=== PATIENT | female | born 2000 | race Caucasian/White ===

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

== ENCOUNTER 2018-08-12 16:29 | Emergency (ER) | payer OTHER ==
[2018-08-12 16:42] VITALS: BP 97/62; PULSE 92; TEMP 98.8; BMI 18.6
[2018-08-12 17:02] LABS: HCG,QUALITATIVE URINE Negative
[2018-08-12 17:11] LABS: URINE APPEARANCE SLCLOUDY; URINE BILIRUBIN NEGATIVE (<2.0 mg/dL); URINE COLOR YELLOW; URINE GLUCOSE (UA) NEGATIVE (NEGATIVE); URINE KETONE NEGATIVE (NEGATIVE); URINE LEUK ESTERASE 2+ (NEGATIVE); URINE NITRITE NEGATIVE (NEGATIVE); URINE PROTEIN NEGATIVE (NEGATIVE); URINE UROBILINOGEN NEGATIVE mg/dL (0.2-1.0)
[2018-08-12 17:14] LABS: EPI CELLS MODERATE /HPF (FEW); URINE MUCUS MANY
--- NOTE | 2018-08-12 17:20 | PDOC ---
History of Present Illness - General Chief Complaint: Urinary Problem Stated Complaint: UTI SYX Time Seen by Provider: 08/12/18 17:05 - History of Present Illness Initial Comments: 08/12/18 17:15 17-year-old female presents for evaluation of dysuria 4 days. She has no systemic symptoms or comorbidities. Past History - Past Medical History Allergies/Adverse Reactions: Allergies Allergy/AdvReac Type Severity Reaction Status Date / Time No Known Drug Allergies Allergy Unknown Verified 08/12/18 16:35 Home Medications: Ambulatory Orders Nitrofurantoin Monohyd/M-Cryst [Macrobid -] 100 mg PO BID #14 capsule 08/12/18 Asthma: No Cancer: No Cardiac Disorders: No Diabetes: No HTN: No Psychiatric Problems: Yes (DEPRESSION) Seizures: No Thyroid Disease: No - Immunization History Immunization Up to Date: Yes - Suicide/Smoking/Psychosocial Hx Smoking Status: No Smoking History: Never smoked Have you smoked in the past 12 months: No Number of Cigarettes Smoked Daily: 0 Hx Alcohol Use: No Drug/Substance Use Hx: No Substance Use Type: None Hx Substance Use Treatment: No Review of Systems - Review of Systems Constitutional: No: Fever : Yes: Dysuria *Physical Exam - Vital Signs Last Vital Signs Temp Pulse Resp BP Pulse Ox 98.8 F 92 H 18 97/62 99 08/12/18 16:41 08/12/18 16:41 08/12/18 16:41 08/12/18 16:41 08/12/18 16:41 - Physical Exam Comments: 08/12/18 17:15 HEAD: NC/AT EYES: Conjuntiva clear MS: Full ROM in all joints without edema NEUROLOGIC: No gross sensory or motor deficits, NVID SKIN: Normal color and temperature no lesions or rashes Moderate Sedation - Procedure Monitoring Vital Signs: Procedure Monitoring Vital Signs Temperature 98.8 F 08/12/18 16:41 Pulse Rate 92 H 08/12/18 16:41 Respiratory Rate 18 08/12/18 16:41 Blood Pressure 97/62 08/12/18 16:41 O2 Sat by Pulse Oximetry (%) 99 08/12/18 16:41 ED Treatment Course - ADDITIONAL ORDERS Additional order review: Laboratory Results 08/12/18 16:54 Urine Color Yellow Urine Appearance Slcloudy Urine pH 5.0 Ur Specific [place] 1.028 Urine Protein Negative Urine Glucose (UA) Negative Urine Ketones Negative Urine Blood 2+ H Urine Nitrite Negative Urine Bilirubin Negative Urine Urobilinogen Negative Ur Leukocyte Esterase 2+ H Urine WBC (Auto) 13 Urine RBC (Auto) 1 Ur Epithelial Cells Moderate Urine Mucus Many Urine HCG, Qual Negative *DC/Admit/Observation/Transfer Diagnosis at time of Disposition: UTI (urinary tract infection) - Discharge Dispostion Disposition: HOME Condition at time of disposition: Stable Decision to Admit order: No - Prescriptions Prescriptions: Nitrofurantoin Monohyd/M-Cryst [Macrobid -] 100 mg PO BID #14 capsule - Referrals - Patient Instructions Printed Discharge Instructions: Urinary Tract Infection Additional Instructions: Please take the antibiotics as directed. Return to the emergency room should symptoms worsen or go unresolved and follow-up with your primary care physician one to 2 days for further evaluation and treatment options. - Post Discharge Activity
== END 2018-08-12 17:27 | disposition home or self-care (01) ==
LOC: JERFT 16:29
DX: N39.0 Urinary tract infection, site not specified (principal)
CPT/HCPCS: 81003; 81015; 84703; 87077; 87086; 99281-25

== ENCOUNTER 2020-01-02 18:41 | Inpatient (IN) | payer OTHER ==
[2020-01-02] MEDS: ELECTROLYTE-148 SOLN 1,000 ML IV SCH (18:41)
[2020-01-02 18:54] VITALS: BMI 21.5
--- NOTE | 2020-01-02 18:56 | HP ---
Past Medical History - Primary Care Physician PCP:: Jeromy Irwin E - Admission Chief Complaint: In labor History of Present Illness: Hx of PTL. Second . PTL prevention. BMZ series. Refused Linda, 36w 1d. History Source: Medical Record, Caregiver Limitations to Obtaining History: No Limitations - Past Medical History WAIST CUTTER: No: Alzheimer's, CVA, Dementia, Migraine, Multiple Sclerosis, Peripheral Neuropathy, Parkinson's, Seizure, Syncope, TIA, Vertigo, Other Cardiovascular: No: AFIB, Aneurysm, Aortic Insufficiency, Aortic Stenosis, CAD, CHF, Deep Vein Thrombosis, HTN, Hyperlipdemia, [place], Mitral Insufficiency, Mitral Stenosis, Murmur, Pulmonary Hypertension, Other Pulmonary: No: Asthma, Bronchitis, Cancer, COPD, O2 Dependent, Pneumonia, Previously Intubated, Pulmonary Embolus, Pulmonary Fibrosis, Sleep Apnea, Other Gastrointestinal: No: Ascites, Cancer, Constipation, Crohn's Disease, Diverticulitis, Diverticulosis, Esophageal Varices, Gastritis, GERD, GI Bleed, Hemorrhoids, Hiatal Hernia, Inflamatory Bowel Disease, Irritable Bowel Disease, Pancreatitis, Peptic Ulcer Disease, Ulcerative Colitis, Other Hepatobiliary: No: Cirrhosis, Cholelithiasis, Cholecystitis, Choledocholithiasis, Hepatitis A, Hepatitis B, Hepatitis C, Other Renal/: No: Renal Failure, Renal Inusuff, BPH, Cancer, Hematuria, Hemodialysis, Neurogenic Bladder, Renal Calculi, UTI, Other Reproductive: No: Ectopic , Endometriosis, Fibroids, PID, Polycystic Ovary Syndrome, Postmenopausal, Other ... Weeks Gestation by Dates: 36.1 Heme/Onc: No: Anemia, B12 Deficiency, Bleeding Disorder, Cancer, Current Chemotherapy, Current Radiation Therapy, Hemochromatosis, Hypercoaguable State, Myeloproliferative Synd, Sickle Cell Disease, Sickle Cell Trait, Thrombocytopenia, Other Infectious Disease: No: AIDS, C-Diff, Herpes Zoster, HIV, MRSA, STD's, Tuberculosis, VREF, Other Psych: No: Addictions, Anxiety, Bipolar, Depression, Panic, Psychosis, Schizophrenia, Other Musculoskeletal: No: Bursitis, Chronic low back pain, Hemiparesis, Hemiplegia, Osteoarthritis, Paraplegia, Other Rheumatology: No: Fibromyalgia, Gout, Lupus, Rheumatoid Arthritis, Sarcoidosis, Vasculitis, Other ENT: No: Allergic Rhinitis, Sinusitis, Other Endocrine: No: Esteban's Disease, Frank's Disease, Diabetes Insipidus, Diabetes Mellitus, Hyperparathyroidism, Hyperthyroidism, Hypothyroidism, Osteopenia, SIADH, Other Dermatology: No: Basal Cell, Cellulitis, Eczema, Melanoma, Psoriasis, Squamous Cell, Other - Past Surgical History Past Surgical History: No: None, AAA Repair, AICD, Amputation, Appendectomy, Arthrosocopy, AV Fistula/Graft, Bariatric Surgery, Breast Biopsy, Bypass, CABG, Carotid Endarterectomy, Cataract Removal, Cholecystectomy, Colectomy, Colonoscopy, Colostomy, Craniotomy, , Cystectomy, Hernia Repair, Hysterectomy, Ileal Conduit, Ileosotomy, Joint Replacement, Kidney Transplant, Laminectomy, Liver Transplant, Mastectomy, Nephrectomy, Oopherectomy, Orchiectomy, Permanent Pacemaker, Prostatectomy, Splenectomy, Stent, Thoracotomy, TURP, Tonsillectomy, Tubal Ligation, Upper Endoscopy, Valve Replacement, Vasectomy, Vein Stripping/Ligation Hx Myomectomy: No Hx Transabdominal Cerclage: No - Smoking History Smoking history: Never smoked Have you smoked in the past 12 months: No Aproximately how many cigarettes per day: 0 - Alcohol/Substance Use Hx Alcohol Use: No Home Medications - Allergies Allergies/Adverse Reactions: Allergies Allergy/AdvReac Type Severity Reaction Status Date / Time No Known Drug Allergies Allergy Unknown Verified 01/02/20 18:44 - Home Medications Home Medications: Ambulatory Orders NK [No Known Home Medication] 01/02/20 Family Medical History Family History: Unremarkable Review of Systems - Review of Systems Constitutional: reports: No Symptoms Eyes: reports: No Symptoms HENT: reports: No Symptoms Neck: reports: No Symptoms Cardiovascular: reports: No Symptoms Respiratory: reports: No Symptoms Gastrointestinal: reports: No Symptoms Genitourinary: reports: No Symptoms Breasts: reports: No Symptoms Reported Musculoskeletal: reports: No Symptoms Integumentary: reports: No Symptoms Neurological: reports: No Symptoms Endocrine: reports: No Symptoms Hematology/Lymphatic: reports: No Symptoms Psychiatric: reports: No Symptoms Problem List - Problems (1) with 36 completed weeks gestation Code(s): Z3A.36 - 36 WEEKS GESTATION OF (2) Active labor Code(s): ZTI6526 - Assessment/Plan Admitted . SBE prophylaxis. Delivery.
[2020-01-02] MEDS ORDERED: AMPICILLIN - 2 GM in SODIUM CHLORIDE 100 ML IVPB ONE (18:57)
[2020-01-02] MEDS ORDERED: ELECTROLYTE-148 SOLN 1,000 ML IV SCH ×2 (19:00→21:00)
[2020-01-02] MEDS ORDERED: LIDOCAINE HCL 1% PRESERVATIVE FREE - 30ML VIAL ONE (19:30)
[2020-01-02] MEDS ORDERED: OXYTOCIN 20 UNITS in 0.9% NS 20 UNIT/1,000 ML INFUS.BAG IV ONE (19:30)
--- NOTE | 2020-01-02 20:24 | PN ---
Progress Note, Labor Vaginal Exam #1 Labor Exam Date: 01/02/20 Labor Exam Time: 19:05 Heart Rate (range): 135 Dilatation: 5 Effacement (%): 80 Amniotic Membrane Status: Intact Presentation: Vertex/Position Station: 0 (AROM - clear.)
--- NOTE | 2020-01-02 20:27 | PN ---
Progress Note, Labor Vaginal Exam #2 Labor Exam Date: 01/02/20 Labor Exam Time: 20:10 Dilatation: 8 Effacement (%): 90 Amniotic Membrane Status: Ruptured Presentation: Vertex/Position Station: +1 (Declines epidural. Very active labor.)
[2020-01-02] MEDS: OXYTOCIN 20 UNITS in 0.9% NS 20 UNIT/1,000 ML INFUS.BAG IV SCH (20:45)
--- NOTE | 2020-01-02 20:53 | PN ---
Progress Note, Labor Vaginal Exam #3 Labor Exam Date: 01/02/20 Labor Exam Time: 20:20 Station: +2 (Fully, pushing.)
[2020-01-02] MEDS ORDERED: METHYLERGONOVINE MALEATE 0.2 MG/1 ML AMP IM PRN (20:55)
[2020-01-02] MEDS ORDERED: IBUPROFEN 600 MG TABLET (FP) PO PRN (20:55)
[2020-01-02] MEDS ORDERED: BENZOCAINE 20% 57 GM BOTTLE TP PRN (20:55)
[2020-01-02] MEDS ORDERED: ACETAMINOPHEN 325 MG TABLET (FP) PO PRN (20:55)
[2020-01-02] MEDS ORDERED: BENZOCAINE 28 GM HEMORRHOIDAL OINTMENT TP PRN (20:55)
[2020-01-02] MEDS ORDERED: WITCH HAZEL 50% (TUCKS) 40 PAD/JAR PAD TP PRN (20:55)
[2020-01-02] MEDS ORDERED: BISACODYL 10 MG SUPP.RECT RC PRN (20:55)
--- NOTE | 2020-01-02 20:55 | PN ---
Delivery - Delivery Vaginal Delivery: No Problems Type of Anesthesia: None Episiotomy/Laceration: None EBL (cc): 150 Delivery, Single - Stages of Labor Time of Delivery: 20:33 Placenta: Yes: Spontaneous, Normal Configuration - Condition of Infant Windows Support Engineer/Autocad Present: No Infant Gender: Male Position: Right, OA - 1 Minute Total Score: 9 5 Minutes Total Score: 9 - [place] Feeding Plan Initial Plan: Exclusive throughout hospitalization Benefits of Exclusively reinforced: Yes Remarks - Remarks Remarks: NVSD. No lacer. All's well.
[2020-01-02] MEDS ORDERED: OXYTOCIN 20 UNITS in 0.9% NS 1000 ML INFUS.BAG IV ONE (20:56)
[2020-01-02 21:08] LABS: INR 0.88 (0.83-1.09); PROTHROMBIN TIME (PATIENT) 10.4 SEC (9.7-13.0)
[2020-01-02 21:09] LABS: BASO % 0.4 % (0-2.0); EOS % 0.4 % (0-4.5); HEMATOCRIT 31.8 % (32.4-45.2); HEMOGLOBIN 10.1 GM/dL (10.7-15.3); LYMPH % 36.6 % (8-40); MCH 24.6 pg (25.7-33.7); MCHC 31.8 g/dl (32.0-36.0); MEAN CELL VOLUME 77.3 fl (80-96); MEAN PLT VOLUME 8.9 fl (7.5-11.1); MONO % 7.6 % (3.8-10.2); PLATELET COUNT 259 K/MM3 (134-434); RBC 4.12 M/mm3 (3.60-5.2); RDW 15.6 % (11.6-15.6); WHITE BLOOD COUNT 7.9 K/mm3 (4.0-10.0)
[2020-01-02 21:11] LABS: ACTIVATED PTT 23.9 SECONDS (25.2-36.5)
[2020-01-02 21:20] LABS: BLOOD UREA NITROGEN 8.2 mg/dL (7-18); CALCIUM 8.8 mg/dL (8.5-10.1); CREATININE 0.6 mg/dL (0.55-1.3); POTASSIUM 3.7 mmol/L (3.5-5.1)
[2020-01-03 08:38] LABS: BASO % 0.2 % (0-2.0); EOS % 0.2 % (0-4.5); HEMATOCRIT 29.6 % (32.4-45.2); HEMOGLOBIN 9.2 GM/dL (10.7-15.3); LYMPH % 17.3 % (8-40); MCH 23.7 pg (25.7-33.7); MCHC 31.2 g/dl (32.0-36.0); MEAN CELL VOLUME 76.1 fl (80-96); MEAN PLT VOLUME 8.3 fl (7.5-11.1); MONO % 7.9 % (3.8-10.2); NEUT % 74.4 % (42.8-82.8); PLATELET COUNT 206 K/MM3 (134-434); RBC 3.89 M/mm3 (3.60-5.2); RDW 15.6 % (11.6-15.6); WHITE BLOOD COUNT 10.5 K/mm3 (4.0-10.0)
[2020-01-03] MEDS ORDERED: SENNOSIDES/DOCUSATE COMBO (SENNA PLUS) TABLET (UD) PO PRN (22:00)
[2020-01-04 11:05] VITALS: BP 109/60; PULSE 55; TEMP 98.2
--- NOTE | 2020-01-04 11:50 | PN ---
Post Progress Note - Subjective Subjective: Doing very well. Happy, stable. Type of Delivery: Vital Signs: Vital Signs Temperature 98.2 F 01/04/20 10:00 Pulse Rate 55 L 01/04/20 10:00 Respiratory Rate 18 01/04/20 10:00 Blood Pressure 109/60 01/04/20 10:00 O2 Sat by Pulse Oximetry (%) Breast Exam: Yes: Soft Uterus: Yes: Fundus Firm Abdomen/GI: Yes: Abdomen soft, Passing flatus Lochia: Yes: Rubra Lochia, amount: Small Extremities: Yes: Calves non-tender Perineum: Yes: Intact Activity: Ambulating - Labs Labs: CBC WBC 10.5 K/mm3 (4.0-10.0) H 01/03/20 08:05 RBC 3.89 M/mm3 (3.60-5.2) 01/03/20 08:05 Hgb 9.2 GM/dL (10.7-15.3) L 01/03/20 08:05 Hct 29.6 % (32.4-45.2) L 01/03/20 08:05 MCV 76.1 fl (80-96) L 01/03/20 08:05 MCH 23.7 pg (25.7-33.7) L 01/03/20 08:05 MCHC 31.2 g/dl (32.0-36.0) L 01/03/20 08:05 RDW 15.6 % (11.6-15.6) 01/03/20 08:05 Plt Count 206 K/MM3 (134-434) D 01/03/20 08:05 MPV 8.3 fl (7.5-11.1) 01/03/20 08:05 Absolute Neuts (auto) 7.8 K/mm3 (1.5-8.0) 01/03/20 08:05 Neutrophils % 74.4 % (42.8-82.8) D 01/03/20 08:05 Lymphocytes % 17.3 % (8-40) D 01/03/20 08:05 Monocytes % 7.9 % (3.8-10.2) 01/03/20 08:05 Eosinophils % 0.2 % (0-4.5) 01/03/20 08:05 Basophils % 0.2 % (0-2.0) 01/03/20 08:05 Nucleated RBC % 0 % (0-0) 01/03/20 08:05 Other Findings, Remarks: Circ. done. Instructions given. Discharge. Problem List - Problems (1) with 36 completed weeks gestation Code(s): Z3A.36 - 36 WEEKS GESTATION OF (2) Active labor Code(s): WIP4920 - (3) Normal course Code(s): Z39.2 - ENCOUNTER FOR ROUTINE FOLLOW-UP
--- NOTE | 2020-01-04 12:04 | DS ---
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: Vital Signs Temperature 98.2 F 01/04/20 10:00 Pulse Rate 55 L 01/04/20 10:00 Respiratory Rate 18 01/04/20 10:00 Blood Pressure 109/60 01/04/20 10:00 O2 Sat by Pulse Oximetry (%) Constitutional: Yes: Well Nourished, No Distress, Calm Eyes: Yes: WNL, Conjunctiva Clear, EOM Intact HENT: Yes: WNL, Atraumatic, Normocephalic Neck: Yes: WNL, Supple, Trachea Midline Cardiovascular: Yes: WNL, Regular Rate and Rhythm Respiratory: Yes: WNL, Regular, CTA Bilaterally Gastrointestinal: Yes: WNL ...Rectal Exam: Yes: WNL Renal/: Yes: WNL Breast(s): Yes: WNL Musculoskeletal: Yes: WNL Extremities: Yes: WNL Integumentary: Yes: WNL Neurological: Yes: WNL, Alert, Oriented ...Motor Strength: WNL Psychiatric: Yes: WNL, Alert, Oriented Labs: CBC, BMP 01/03/20 08:05 01/02/20 20:23 Delivery - Delivery Vaginal Delivery: No Problems Type of Anesthesia: None Episiotomy/Laceration: None EBL (cc): 150 Delivery, Single - Stages of Labor Date 1st Stage Initiatied: 01/02/20 Time 1st Stage Initiated: 16:00 Date 2nd Stage Initiated: 01/02/20 Time 2nd Stage Initiated: 20:31 Date of Delivery: 01/02/20 Time of Delivery: 20:33 Time Placenta Delivered: 20:37 Placenta: Yes: Spontaneous, Normal Configuration - Condition of Field Agent/Group Home Counselor Present: No Gender: Male Weight: 5 lb 10 oz Position: Right, OA Total Hours ROM (Hrs/Mins): 1 hour 20 min - 1 Minute Total Score: 9 5 Minutes Total Score: 9 - Feeding Plan Initial Plan: Exclusive throughout hospitalization Benefits of Exclusively reinforced: Yes Remarks - Remarks Remarks: Excellent PP. Circ. done. Discharge Summary Problems reviewed: Yes Reason For Visit: LABOR Current Active Problems Active labor (Acute) Normal course (Acute) with 36 completed weeks gestation (Acute) Hospital Course: Benign Health Concerns: PP depression. Discussed. Pt. is up and positive. AAdvised to see therapist anyway. we"ll follow as well. Condition: Good - Instructions Diet, Activity, Other Instructions: regular. Disposition: HOME - Home Medications Comprehensive Discharge Medication List: Ambulatory Orders NK [No Known Home Medication] 01/02/20
[2020-01-04] MEDS: OXYTOCIN 20 UNITS in 0.9% NS 20 UNIT/1,000 ML INFUS.BAG IV SCH (12:46)
[2020-01-04] MEDS: ELECTROLYTE-148 SOLN 1,000 ML IV SCH (12:47)
== END 2020-01-04 16:05 | disposition home or self-care (01) | DRG 560 ==
LOC: JLDR 18:41 → J3N 23:13
PROVIDERS: ADMIT Specialist; ATTEND Specialist
PROC: 10E0XZZ Delivery of Products of Conception, External Approach (ICD-10-PCS; principal; 2020-01-02)
PROC: 10907ZC Drainage of Amniotic Fluid, Therapeutic from Products of Conception, Via Natural or Artificial Opening (ICD-10-PCS; 2020-01-02)
DX: O80 Encounter for full-term uncomplicated delivery (principal); Z3A.36 36 weeks gestation of pregnancy; Z37.0 Single live birth
CPT/HCPCS: 36415; 59409; 80048; 85025; 85610; 85730; 86780; 86850; 86900; 86901; U0003

== ENCOUNTER 2021-09-03 18:15 | Emergency (ER) | payer OTHER ==
[2021-09-03 18:31] VITALS: BP 107/64; PULSE 103; TEMP 98.2; BMI 19.3
[2021-09-03] MEDS ORDERED: ACETAMINOPHEN 500 MG TABLET (FP) PO ONE (19:26)
[2021-09-03] MEDS ORDERED: ACETAMINOPHEN 500 MG TABLET (FP) ONE (19:30)
[2021-09-03 19:58] LABS: EPI CELLS >36 /uL (0-25.1); HYALINE CASTS 3 /uL (0-3.1); PH,URINE 5.5 (5.0-8.0); URINE APPEARANCE CLEAR; URINE BACTERIA 387 /uL (0-1359); URINE BILIRUBIN NEGATIVE (NEGATIVE); URINE COLOR YELLOW; URINE GLUCOSE (UA) NEGATIVE (NEGATIVE); URINE KETONE TRACE (NEGATIVE); URINE LEUK ESTERASE 1+ (NEGATIVE); URINE NITRITE NEGATIVE (NEGATIVE); URINE PROTEIN NEGATIVE (NEGATIVE); URINE RBC 13 /uL (0-23.9); URINE UROBILINOGEN 0.2 mg/dL (0.2-1.0); URINE WBC 94 /uL (0-25.8)
== END 2021-09-03 20:50 | disposition home or self-care (01) ==
LOC: JER 18:15
DX: O23.591 Infection of other part of genital tract in pregnancy, first trimester (principal); Z3A.12 12 weeks gestation of pregnancy
CPT/HCPCS: 81003; 87077; 87086; 99283-25

== ENCOUNTER 2022-02-16 01:50 | Inpatient (IN) | payer OTHER ==
[2022-02-16] MEDS ORDERED: BENZOCAINE 20% 57 GM BOTTLE TP PRN (02:37)
[2022-02-16] MEDS ORDERED: ACETAMINOPHEN 325 MG TABLET (FP) PO PRN (02:37)
[2022-02-16] MEDS ORDERED: METHYLERGONOVINE MALEATE 0.2 MG/1 ML AMP IM PRN (02:37)
[2022-02-16] MEDS ORDERED: IBUPROFEN 600 MG TABLET (FP) PO PRN (02:37)
[2022-02-16] MEDS ORDERED: oxyCODONE HCL 5 MG TABLET PO PRN (02:37)
[2022-02-16] MEDS ORDERED: BISACODYL 10 MG SUPP.RECT RC PRN (02:37)
[2022-02-16] MEDS ORDERED: WITCH HAZEL 50% (TUCKS) 40 PAD/JAR PAD TP PRN (02:37)
[2022-02-16] MEDS ORDERED: BENZOCAINE 28 GM HEMORRHOIDAL OINTMENT TP PRN (02:37)
[2022-02-16] MEDS ORDERED: OXYTOCIN 20 UNITS in 0.9% NS 20 UNIT/1,000 ML INFUS.BAG IV SCH (02:45)
[2022-02-16 02:56] LABS: BASO % 0.4 % (0-2.0); EOS % 0.5 % (0-4.5); HEMATOCRIT 29.5 % (32.4-45.2); HEMOGLOBIN 9.6 GM/dL (10.7-15.3); LYMPH % 26.8 % (8-40); MCH 23.4 pg (25.7-33.7); MCHC 32.4 g/dl (32.0-36.0); MEAN CELL VOLUME 72.4 fl (80-96); MEAN PLT VOLUME 7.5 fl (7.5-11.1); MONO % 7.4 % (3.8-10.2); NEUT % 64.9 % (42.8-82.8); PLATELET COUNT 292 10^3/uL (134-434); RBC 4.08 M/mm3 (3.60-5.2); RDW 16.2 % (11.6-15.6); WHITE BLOOD COUNT 9.8 K/mm3 (4.0-10.0)
[2022-02-16 03:04] LABS: INR 0.86 (0.83-1.09); PROTHROMBIN TIME (PATIENT) 9.9 SEC (9.7-13.0)
[2022-02-16 03:07] LABS: ACTIVATED PTT 23.6 SECONDS (25.2-36.5)
[2022-02-16 03:10] VITALS: BMI 21.9
[2022-02-16 03:16] LABS: ALBUMIN 2.6 g/dl (3.4-5.0); BLOOD UREA NITROGEN 13.3 mg/dL (7-18)
[2022-02-16 03:19] LABS: CREATININE 0.5 mg/dL (0.55-1.3)
[2022-02-16 03:21] LABS: BILIRUBIN,TOTAL 0.2 mg/dL (0.2-1); TOT PROT 6.7 g/dl (6.4-8.2)
[2022-02-16 03:44] LABS: CORD HCO3 22.2 mmHg (20-29); CORD PCO2 36.6 mmHg (30-78); CORD pH 7.401 (7.14-7.44)
[2022-02-16 03:47] LABS: CORD HCO3 25.8 mmHg (20-29); CORD PCO2 41.4 mmHg (30-78); CORD pH 7.412 (7.14-7.44)
[2022-02-17 08:10] LABS: BASO % 0.4 % (0-2.0); EOS % 1.5 % (0-4.5); HEMATOCRIT 30.8 % (32.4-45.2); HEMOGLOBIN 9.9 GM/dL (10.7-15.3); LYMPH % 28.9 % (8-40); MCH 23.4 pg (25.7-33.7); MCHC 32.1 g/dl (32.0-36.0); MEAN CELL VOLUME 72.9 fl (80-96); MEAN PLT VOLUME 7.7 fl (7.5-11.1); NEUT % 63.2 % (42.8-82.8); PLATELET COUNT 280 10^3/uL (134-434); RBC 4.23 M/mm3 (3.60-5.2); WHITE BLOOD COUNT 11.5 K/mm3 (4.0-10.0)
[2022-02-17] MEDS ORDERED: SENNOSIDES/DOCUSATE COMBO (SENNA PLUS) TABLET (UD) PO PRN (22:00)
[2022-02-17 23:46] VITALS: RESP 18; TEMP 98.8
[2022-02-18 16:05] VITALS: BP 105/71; PULSE 69
== END 2022-02-18 14:00 | disposition home or self-care (01) | DRG 560 ==
LOC: JLDR 01:50 → J3W 04:30
PROVIDERS: ADMIT Specialist; ATTEND Specialist
PROC: 10E0XZZ Delivery of Products of Conception, External Approach (ICD-10-PCS; principal; 2022-02-16)
DX: O60.14X0 Preterm labor third trimester with preterm delivery third trimester, not applicable or unspecified (principal); O36.5930 Maternal care for other known or suspected poor fetal growth, third trimester, not applicable or unspecified; O62.3 Precipitate labor; Z3A.36 36 weeks gestation of pregnancy; Z37.0 Single live birth
CPT/HCPCS: 36415; 36600; 59409; 80053; 82803; 85025; 85610; 85730; 86780; 86850; 86900; 86901; 87529; C9803-CS; U0003; U0005